=== PATIENT | male | born 1970 | race Caucasian/White ===

== ENCOUNTER 2017-05-18 14:38 | Emergency (ER) | payer SELFPAY ==
[2017-05-18 14:43] VITALS: BP 172/99
[2017-05-18] MEDS ORDERED: Ibuprofen TAB* 600 MG PO ONE (15:38)
--- NOTE | 2017-05-18 16:03 | RAD ---
Indication: Neck pain. 5 views of the cervical spine are reviewed. The vertebral bodies appear normal in height. There is straightening of the normal lordosis. There is disc space narrowing at C5-C6. Intervertebral foramen appear patent. IMPRESSION: Degenerative disc disease at C5-C6.
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
== END 2017-05-18 16:56 | disposition home or self-care (01) ==
LOC: ED 14:38
DX: S16.1XXA Strain of muscle, fascia and tendon at neck level, initial encounter (principal); Y08.89XA Assault by other specified means, initial encounter; Y93.89 Activity, other specified; Y92.9 Unspecified place or not applicable; Y99.0 Civilian activity done for income or pay; M50.322 Other cervical disc degeneration at C5-C6 level
CPT/HCPCS: 72050; 99281; A9270-GY